=== PATIENT | female | born 1940 | race Caucasian/White ===

== ENCOUNTER → 2018-10-14 12:36 | Outpatient (CLI) | payer MEDICARE, BC, SELFPAY ==
--- NOTE | 2018-10-14 12:56 | CT_ITS ---
CT head/brain wo con HISTORY: Headache, nausea, left-sided head injury with swelling, syncope ITS.REASON: INJURY OF HEAS,NAUSEA,SYNCOPE ORDERING PHYSICIAN: Mary Bond APRN PATIENT AGE: 78 years COMPARISON: None TECHNIQUE: Axial images were obtained. Brain and bone windows reviewed. All CT scans at the facility use one or more dose reduction, viz: automated exposure control, ma/kV adjustment per patient size (including targeted exams where dose is matched to indication, i.e. head), or iterative reconstruction technique. FINDINGS: No midline shift or mass effect is evident. Superior to the right petrous bone there is a oval area of increased density which measures 1.8 cm AP and 1.2 cm transverse. This is a proximally 66 Hounsfield units. This is oval in nature and well-circumscribed. This would be an unusual appearance for subdural or epidural hemorrhage although those entities are considered. This may represent partially calcified meningioma. Does the patient have any old CT or MRI is at another institution? An MRI without and with contrast may be of further value. There are periventricular ischemic gliotic changes with mild generalized atrophy. There is moderate scalp swelling in the left parietal and frontal region consistent with scalp contusion. No calvarial fracture is evident. IMPRESSION: 1. Hyperdense extra-axial lesion along the right petrous ridge laterally which may be related to a meningioma. Atypical extra-axial hemorrhage is not excluded and follow-up is recommended. Suggest MRI of the brain without and with contrast for further evaluation. 2. No midline shift. 3. Left frontal and parietal scalp hematoma
--- NOTE | 2018-10-14 12:56 | CT_ITS ---
CT facial bones wo con INDICATION: Posttraumatic pain and swelling in the left facial region. ITS.REASON: TRAUMATIC CONTUSION, ORDERING PHYSICIAN: Mary Bond APRN PATIENT AGE: 78 years COMPARISON: None TECHNIQUE: Contrast Used: Oral Contrast: Axial images were obtained. Sagittal and coronal reformatted images are reviewed as well. All CT scans at the facility use one or more dose reduction, viz: automated exposure control, ma/kV adjustment per patient size (including targeted exams where dose is matched to indication, i.e. head), or iterative reconstruction technique. FINDINGS: No fracture apparent. No sinus air-fluid level. There is moderate soft tissue swelling in the left frontal and parietal region extending into the left temporal area. Incidental note is made of a hyperdensity along the superior aspect of the right petrous bone at 1.9 x 1.3 cm and may represent a meningioma versus an unusual extra-axial hemorrhage. Consider MRI for further evaluation. No other significant anomalies are evident. IMPRESSION: 1. No acute fracture. 2. Left frontal/parietal and temporal scalp hematoma. 3. 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 Consider MRI for further evaluation
--- NOTE | 2018-10-14 13:16 | XR_ITS ---
XR elbow LT min 3V HISTORY: Posttraumatic pain ITS.REASON: INJURY OF LT ELBOW ORDERING PHYSICIAN: Mary Bond APRN PATIENT AGE: 78 years COMPARISON: None FINDINGS: No acute fracture or dislocation. There are osteoarthritic changes at the lateral joint with bony hypertrophy of the coracoid. No displaced fat pad. IMPRESSION: No acute fracture, degenerative change.
--- NOTE | 2018-10-14 13:16 | XR_ITS ---
XR shoulder LT min 2V HISTORY: Posttraumatic pain ITS.REASON: INJURY OF LT SHOULDER ORDERING PHYSICIAN: Mary Bond APRN PATIENT AGE: 78 years Comparison: None FINDINGS: No acute fracture or dislocation. Severe osteoarthritic changes are present at the glenohumeral joint prominent at spurring along the inferior aspect of the humeral head last neck. IMPRESSION: No acute finding. 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
--- NOTE | 2018-10-14 13:16 | XR_ITS ---
XR wrist LT w scaphoid HISTORY posttraumatic pain ITS.REASON: INJURY OF LT WRIST ORDERING PHYSICIAN: Mary Bond APRN PATIENT AGE: 78 years Comparison: None FINDINGS There is normal alignment. There is a vague longitudinal lucency at the distal and central aspect of the radius suggesting a nondisplaced fracture. This is questionable. The scaphoid has an unremarkable appearance. IMPRESSION: There is a question of a nondisplaced distal radial fracture extending into the articular surface versus overlying prominent trabeculation. Suggest follow-up exam in 7-10 days
[2018-10-14 14:03] LABS: Basophils % 0.2 % (0.1-2.0); Eosinophils # 0.1 K/mm3 (0.0-0.4); Eosinophils % 0.8 % (0.1-12.0); Hematocrit 36.2 % (37.0-47.0); Hemoglobin 11.5 g/dL (12.2-16.2); Lymphocytes # 0.7 K/mm3 (0.7-4.5); Lymphocytes % 8.5 % (10-50); Mean Corpuscular HGB Conc 31.7 g/dL (31.8-35.4); Mean Corpuscular Hemoglobin 29.3 pg (27.0-31.2); Mean Corpuscular Volume 92.5 fl (81-99); Mean Platelet Volume 8.7 fl (7.4-10.4); Monocytes # 0.3 K/mm3 (0.1-1.0); Monocytes % 3.7 % (1.7-9.3); Neutrophils # 7.4 K/mm3 (1.8-7.8); Neutrophils % 86.8 % (37.0-80.0); Platelet Count 197 K/mm3 (142-424); Red Blood Count 3.91 M/mm3 (4.20-5.40); Red Cell Distribution Width 12.6 % (11.5-17.5); White Blood Count 8.5 K/mm3 (4.8-10.8)
[2018-10-14 14:10] LABS: MANUAL DIFFERENTIAL MANUAL DIFFERENTIAL (MANUAL DIFF)
[2018-10-14 16:01] LABS: Troponin I 0.08 ng/ml (0.00-0.06)
[2018-10-14 16:05] LABS: Alanine Aminotransferase 30 U/L (12-78); Anion Gap 13.6 mEq/L (5-15); Aspartate Amino Transferase 31 U/L (15-37); Bilirubin,Total 0.8 mg/dL (0.2-1.0); Blood Urea Nitrogen 18 mg/dL (7-18); Calcium 9.2 mg/dL (8.5-10.1); Carbon Dioxide 28 mmol/L (21.0-32.0); Chloride 101 mmol/L (98-107); Estimated Glomerular Filt Rate 53 ml/min (>60); GFR (African American) 65 ML/MIN (>60); Glucose 159 mg/dL (74-106); Magnesium 1.8 mg/dL (1.4-2.2); Potassium 3.6 mmoL/L (3.5-5.1); Sodium 139 mmol/L (136-145); Total Protein,Serum 7.6 gm/dL (6.4-8.2)
[2018-10-14 16:06] LABS: Albumin Level 3.7 gm/dL (3.4-5.0); Albumin/Globulin Ratio 0.9 (1.1-1.8); Alkaline Phosphatase 81 U/L (46-116); Globulin 3.9 gm/dl (1.3-3.2); Thyroid Stimulating Hormone 0.81 uIU/ml (0.358-3.740)
--- NOTE | 2018-10-14 16:21 | MR_ITS ---
MR head/brain wo/w con HISTORY: Headache, pain following injury, abnormal CT scan showing possible right-sided intracranial hemorrhage versus meningioma at the petrous ridge. ITS.REASON: INJURY OF HEAD, ABNORMAL CT SCAN ORDERING PHYSICIAN: Mary Bond APRN PATIENT AGE: 78 years Comparison: 10/15/2018 TECHNIQUE: Standard multiplanar multiecho sequences are performed without and with gadolinium enhancement . FINDINGS: No midline shift is evident. CT scan demonstrated an area of increased density along the superior aspect of the right petrous bone. This shows heterogeneous slight increase in FLAIR and T2 signal with isointensity on T1. This does not demonstrate contrast enhancement and shows low signal intensity on the hematoma/images consistent with a small extra-axial hemorrhage probably hyperacute. There is an associated small subdural hematoma in the right temporal region measuring 5 mm in width. No enhancing lesions are evident. Prominent soft tissue swelling is present in the left periorbital and supraorbital region as well as the left parietal area. There is diffuse periventricular and subcortical T2 white matter hyperintensities consistent with ischemic gliotic change from microvascular disease. No sinus air-fluid level. No midline shift. There is a small amount of edema around the hematoma. This area measures 1.8 cm AP and 1 cm cephalad to caudad. IMPRESSION: 1. The hyperdense abnormality noted along the superior aspect of the petrous bone on the right is felt to represent small hyperacute acute extra-axial hemorrhage. This does not enhance as one would expect for meningioma and also shows mild edema. 2. There is an associated small subdural hematoma in the right temporal lobe probably 5 mm in thickness. 3. No midline shift or other significant anomalies. Referring physicians office was unable to be contacted through the hospital builder operator. The patient is instructed to go to the emergency room and check in. I spoke with Dr. Lopez and told him about the patient. The radiologist staff escorted the patient to the emergency room.
[2018-10-14 17:45] LABS: Lymphocytes % 7 % (10-50); Monocytes % 1 % (2-9); Neutrophils % 88 % (42-76); Total Cells Counted 100
[2018-10-14 17:46] LABS: Hypochromasia 1+; Platelet Estimate Normal
== END ==
PROVIDERS: PCP Nurse Practitioner Family; Visit Provider Nurse Practitioner Family
DX: R55 Syncope and collapse (principal); Z79.899 Other long term (current) drug therapy
CPT/HCPCS: 36415; 70450; 70486; 70553; 73030; 73080; 73110; 80053; 83735; 84443; 84484; 85007; 85025; A9576

== ENCOUNTER 2022-03-24 06:55 | Emergency (ER) | payer MEDICARE, BC, SELFPAY ==
[2022-03-24] VITALS (9 sets, daily range): BP systolic 146–179; BP diastolic 74–100; PULSE 59–76; RESP 18; TEMP 37.5; O2SAT 94–97; BMI 21.6; BMI 20.2
[2022-03-24 07:19] LABS: Influenza A, PCR Not Detected (NotDetected); Influenza B, PCR Not Detected (NotDetected); Microscopic, Urine URINE MICROSCOPIC (MICROSCOPIC)
[2022-03-24 07:21] LABS: Appearance,Urine CLEAR (Clear); Bilirubin,Urine Negative (Negative); Blood, Urine 2+ (Negative); Color,Urine YELLOW (Yellow); Glucose,Urine (UA) Negative (Negative); Ketones,Urine TRACE (Negative); Leukocyte Esterase,Urine Negative (Negative); Nitrate,Urine Negative (Negative); PH,Urine 6.5 (5.0-8.5); Protein,Urine 2+ (Negative); Urobilinogen,Urine 0.2 EU/dl (0.2)
[2022-03-24 07:21] LABS: Basophils % 0.6 % (0.1-2.0); Eosinophils # 0.1 K/mm3 (0.0-0.4); Eosinophils % 0.8 % (0.1-12.0); Hematocrit 34.9 % (37.0-47.0); Hemoglobin 11.8 g/dL (12.2-16.2); Lymphocytes # 1.1 K/mm3 (0.7-4.5); Lymphocytes % 16.9 % (10-50); Mean Corpuscular HGB Conc 33.7 g/dL (31.8-35.4); Mean Corpuscular Hemoglobin 30.9 pg (27.0-31.2); Mean Corpuscular Volume 91.6 fl (81-99); Monocytes # 0.6 K/mm3 (0.1-1.0); Monocytes % 9.8 % (1.7-9.3); Neutrophils # 4.7 K/mm3 (1.8-7.8); Neutrophils % 71.9 % (37.0-80.0); Platelet Count 213 K/mm3 (142-424); Red Blood Count 3.81 M/mm3 (4.20-5.40); Red Cell Distribution Width 13.1 % (11.5-17.5); White Blood Count 6.5 K/mm3 (4.8-10.8)
[2022-03-24 07:25] LABS: Chloride 102 mmol/L (98-107); Potassium 3.7 mmoL/L (3.5-5.1); Sodium 139 mmol/L (136-145)
[2022-03-24 07:28] LABS: Alanine Aminotransferase 23 U/L (12-78); Albumin Level 4.5 g/dl (3.5-5.0); Albumin/Globulin Ratio 1.4 (1.1-1.8); Alkaline Phosphatase 93 U/L (38-126); Anion Gap 12.7 mEq/L (5-15); Aspartate Amino Transferase 35 U/L (14-36); Bilirubin,Total 0.4 mg/dl (0.2-1.3); Blood Urea Nitrogen 16 mg/dl (7-17); Carbon Dioxide 28 mmol/L (22.0-30.0); Creatinine Clearance Estimated 38 mL/min (50-200); Estimated Glomerular Filt Rate 43 ml/min (>60); GFR (African American) 52 ML/MIN (>60); Globulin 3.3 g/dL (1.3-3.2); Total Protein,Serum 7.8 g/dl (6.3-8.2)
[2022-03-24 07:29] LABS: Calcium 9.6 mg/dl (8.4-10.2); Glucose 135 mg/dl (74-100)
[2022-03-24 07:34] LABS: Bacteria,Urine 1+ /lpf; Mucus,Urine Trace /lpf
[2022-03-24 07:42] LABS: Coronavirus 19, PCR Detected (NotDetected)
--- NOTE | 2022-03-24 07:47 | CT_ITS ---
FINAL REPORT TECHNIQUE: Axial CT images were performed from the lung bases through the pubic symphysis. Coronal reformats were submitted and reviewed. This study was performed with techniques to keep radiation doses as low as reasonably achievable (ALARA). Individualized dose reduction techniques using automated exposure control or adjustment of mA and/or kV according to the patient's size were employed. CLINICAL HISTORY: pain FINDINGS: Abdomen: There is mild bibasilar atelectasis or scarring. There is a large gallstone in the gallbladder. The liver, spleen and pancreas are unremarkable. There are no adrenal masses. There is a 6 mm nonobstructing stone in the left kidney. There is no hydronephrosis. The kidneys have a lobular contour which is favored represent a normal variation. There are several right renal masses that cannot be accurately characterized without contrast. There is an 8 mm high attenuation mass in the lower pole the right kidney that could represent a hyperdense cyst. There is a moderate to large amount of retained stool. Pelvis: The appendix is not well seen. There are no distal ureteral stones. The urinary bladder is unremarkable. IMPRESSION: Large gallstone. Nonobstructing left renal stone. Several right renal masses including a questionable 8 mm hyperdense lower pole mass. This could be further evaluated with renal mass protocol CT. Moderate to large amount of retained stool. Reviewed, Interpreted and Dictated by Kieran Suazo III, MD Transcribed by Everton Cuevas Authenticated and [facility]
--- NOTE | 2022-03-24 07:55 | PC.NURSE ---
radiology aware of ct scan for pt
--- NOTE | 2022-03-24 08:00 | PC.NURSE ---
Checked on patient, she reports no needs at this time. She is sitting up on ED stretcher with spouse at BS. Call light within reach, aware that MD will be in shortly
--- NOTE | 2022-03-24 08:07 | PC.NURSE ---
PARDEEP ZHONG at
--- NOTE | 2022-03-24 08:10 | XR_ITS ---
FINAL REPORT CLINICAL HISTORY: COVID, productive cough COMPARISON: October 2018 FINDINGS: SINGLE VIEW CHEST The heart size is enlarged. The mediastinum is within normal limits. No acute pulmonary abnormality is identified. There is no evidence of pneumothorax. There are degenerative changes in the left shoulder. IMPRESSION: No acute cardiopulmonary process. Reviewed, Interpreted and Dictated by Kieran Suazo III, MD Transcribed by Everton Cuevas Authenticated and [facility]
--- NOTE | 2022-03-24 08:10 | HMH.EDGENADL ---
Discharge Plan Disposition Patient Disposition: Home, Self-Care Condition: Good Chief Complaint: Weakness Prescriptions Prescriptions: No Action lisinopril 40 MG tablet 40 mg PO DAILY Referrals Follow up/Referrals: Mary Bond APRN [Primary Care Provider] - See instructions Activity Restrictions/Add. Instructions Additional Instructions/Restrictions: Make sure to stay hydrated, eat and drink to make sure you do not become dehydrated and have kidney issues. Tylenol and Motrin every 6 hours as needed for body aches and fever, make sure to take these with food and water to prevent stomach upset and kidney issues as well. If you have any other concerning signs or symptoms, return to the ED for further evaluation or your primary care provider. Quarantine from day of start symptoms (day 0) until day 5. Follow-up with your primary care provider regarding imaging results, including right renal masses and gallstone. Clinical Impressions Clinical Impression: Dehydration, mild, COVID-19 Discharge ED Provider: Zaki Corley General Adult HPI General Chief complaint: Weakness Stated complaint: freezing,difficulty focusing,weakness Time Seen by Provider: 03/24/22 08:00 Mode of Arrival: Ambulatory Source of Information: Patient Limitations: No Limitations Description of Symptoms (Recalled from ER Triage Doc. by RN): c/o having a freezing spell last night. States she got up about 10 times to urinate last night, feeling weak and when she got up this morning she couldnt walk straight. History of Present Illness HPI narrative: This is an 81-year-old female with history of hypertension who is presenting with fevers, chills, productive cough, sore throat. Patient states that the symptoms started 1 day prior to arrival with chills. She has felt febrile, but has not taken any objective temperature measurement. She has had associated rhinorrhea, cough which is worse when she lays down. Cough is productive of white sputum. She denies chest pain, shortness of breath, nausea, vomiting, diarrhea, abdominal pain, dysuria, hematuria, confusion, neck pain, difficulty with range of motion of neck, difficulty swallowing, or any other concerning history. Related Data Home Medications Medication Instructions Recorded Confirmed lisinopril 40 mg tablet 40 mg PO DAILY High blood pressure 10/14/18 10/14/18 Allergies Allergy/AdvReac Type Severity Reaction Status Date / Time No Known Allergies Allergy Verified 10/14/18 18:20 [facility] Disclaimer: The information contained in this section may have been updated after the patient was seen, as this information can be updated by other users. Social History Smoking Status: Never smoker alcohol intake: never current occupational status: retired Travel in the last 8 weeks: None ROS Obtained: Yes All systems reviewed & no additional complaints except as documented Physical Exam General General appearance: alert, in no apparent distress and anxious Head Head exam: atraumatic, normocephalic and normal inspection Eye Eye exam: Present normal appearance, PERRL and EOMI ENT ENT exam: Present normal exam, normal oropharynx, mucous membranes moist, TM's normal bilaterally and normal external ear exam Neck Neck exam: Present normal inspection, full ROM and trachea midline; Absent tenderness, meningismus or lymphadenopathy Chest Chest inspection: Present normal inspection and symmetric chest wall rise; Absent tenderness Respiratory Respiratory exam: Present normal lung sounds bilaterally; Absent respiratory distress Cardiovascular Cardiovascular exam: Present regular rate and normal rhythm; Absent JVD Abdominal Exam Abdominal exam: Present soft and normal bowel sounds; Absent distention, tenderness, guarding, rebound or rigidity Extremities Exam Extremities exam: Present normal inspection, full ROM and normal capillary refill; Absent edema or calf tenderness Back Exam Back ex
--- NOTE | 2022-03-24 08:34 | PC.NURSE ---
pt returned from scan
== END 2022-03-24 10:31 | disposition home or self-care (01) ==
PROVIDERS: Emergency Medicine; Emergency Provider Emergency Medicine; PCP Nurse Practitioner Family
DX: U07.1 COVID-19 (principal); J02.9 Acute pharyngitis, unspecified; R50.9 Fever, unspecified; R53.1 Weakness; N20.0 Calculus of kidney; M79.10 Myalgia, unspecified site; R31.29 Other microscopic hematuria; R05.9 Cough, unspecified; I10 Essential (primary) hypertension; N28.89 Other specified disorders of kidney and ureter
CPT/HCPCS: 71045; 74176; 80053; 81001; 85025; 96360; 99285; C9803; U0003; U0005

== ENCOUNTER → 2023-02-25 10:11 | Outpatient (CLI) | payer MEDICARE, BC, SELFPAY ==
[2023-02-25 10:56] LABS: Basophils % 0.5 % (0.1-2.0); Eosinophils % 0.8 % (0.1-12.0); Hematocrit 36.4 % (37.0-47.0); Hemoglobin 11.7 g/dL (12.2-16.2); Lymphocytes % 19.8 % (10-50); Mean Corpuscular HGB Conc 32.1 g/dL (31.8-35.4); Mean Corpuscular Hemoglobin 30.9 pg (27.0-31.2); Mean Corpuscular Volume 96.4 fl (81-99); Mean Platelet Volume 8.8 fl (7.4-10.4); Monocytes # 0.3 K/mm3 (0.1-1.0); Monocytes % 5.7 % (1.7-9.3); Neutrophils # 3.6 K/mm3 (1.8-7.8); Neutrophils % 73.1 % (37.0-80.0); Platelet Count 187 K/mm3 (142-424); Red Blood Count 3.78 M/mm3 (4.20-5.40); Red Cell Distribution Width 13.6 % (11.5-17.5); White Blood Count 4.9 K/mm3 (4.8-10.8)
[2023-02-25 11:23] LABS: Alanine Aminotransferase 27 U/L (12-78); Albumin Level 4.3 g/dl (3.5-5.0); Alkaline Phosphatase 96 U/L (38-126); Anion Gap 10.9 mEq/L (5-15); Aspartate Amino Transferase 40 U/L (14-36); Bilirubin,Direct 0.2 mg/dl (0.0-0.4); Bilirubin,Indirect 0.5 mg/dL (0.0-0.9); Bilirubin,Total 0.7 mg/dl (0.2-1.3); Bilirubin,Unconjugated 0.5 mg/dL (0.0-1.1); Blood Urea Nitrogen 22 mg/dl (7-17); Calcium 8.9 mg/dl (8.4-10.2); Carbon Dioxide 28 mmol/L (22.0-30.0); Chloride 103 mmol/L (98-107); Chol/HDL Ratio 2.6 (1-3.5); Cholesterol 267 mg/dl (140-200); Estimated Glomerular Filt Rate 47 ml/min (>60); GFR (African American) 57 ML/MIN (>60); Glucose 113 mg/dl (74-100); HDL Cholesterol 102 mg/dl (40-60); Potassium 3.9 mmoL/L (3.5-5.1); Sodium 138 mmol/L (136-145); Total Protein,Serum 7.6 g/dl (6.3-8.2); Triglycerides 83 mg/dl (30-150); VLDL Cholesterol 17 mg/dL (0-40)
[2023-02-25 11:35] LABS: Direct LDL Cholesterol 124.23 mg/dL (100-129)
[2023-02-25 11:39] LABS: Free T4 (Free Thyroxine) 1.43 ng/dl (0.78-2.19)
[2023-02-25 11:53] LABS: Thyroid Stimulating Hormone 1.49 uIU/mL (0.465-4.68)
== END ==
PROVIDERS: PCP Nurse Practitioner Family; Visit Provider Nurse Practitioner
DX: I10 Essential (primary) hypertension (principal); I49.9 Cardiac arrhythmia, unspecified; R94.31 Abnormal electrocardiogram [ECG] [EKG]
CPT/HCPCS: 36415; 80048; 80061; 80076; 83735; 84439; 84443; 85025

== ENCOUNTER → 2023-03-02 09:34 | Outpatient (CLI) | payer MEDICARE, BC, SELFPAY ==
--- NOTE | 2023-03-02 09:47 | CT_ITS ---
FINAL REPORT CLINICAL HISTORY: blurry vision, headache FINDINGS: CTA HEAD TECHNIQUE: Thin section axial CT with contrast with 3D MIP reconstruction FINDINGS: No aneurysm is seen. There is mild stenosis of the proximal diamond setter apprentice. IMPRESSION: Mild stenosis of the proximal diamond setter apprentice. CT NECK ANGIO, WITHOUT AND WITH CONTRAST TECHNIQUE: Thin section axial CT with IV contrast supplemented with 3D MIP reconstruction NASCET criteria and technique was utilized during interpretation. FINDINGS: Aortic arch: Arch shows no significant narrowing. Great vessel origins are widely patent. Right carotid: No significant stenosis is seen of the cervical common or internal carotid artery. Left carotid: No significant stenosis is seen of the cervical common or internal carotid artery. Vertebrals: The vertebral arteries are codominant. No significant stenosis is present. IMPRESSION: No significant stenosis of the cervical carotid arteries This study was performed using automated techniques to achieve radiation exposure as low as reasonably Reviewed, Interpreted and Dictated by Marquis Lea MD Transcribed by Ruthann Salas Authenticated and . [facility]
--- NOTE | 2023-03-02 09:47 | CT_ITS ---
FINAL REPORT TECHNIQUE: Axial images through the head was performed by computed tomography. Sagittal and coronal reformatted images were obtained and reviewed. This study was performed with techniques to keep radiation doses as low as reasonably achievable (ALARA). Individualized dose reduction techniques using automated exposure control or adjustment of mA and/or kV according to the patient's size were employed. CLINICAL HISTORY: headache, blurry vision. r/o stroke COMPARISON: 10/14/2018 FINDINGS: Mild atrophy and chronic ischemic white matter changes are noted. No cortical edema is present. There is no mass or hemorrhage. Ventricles are normal. Bone windows show no skull fracture or obvious obstructive lesion. IMPRESSION: 1. No acute intracranial abnormality or obvious mass. 2. Atrophy and chronic ischemic white matter changes as above. Reviewed, Interpreted and Dictated by Marquis Lea MD Transcribed by Ruthann Salas Authenticated and . [facility]
== END ==
PROVIDERS: PCP Nurse Practitioner Family; Visit Provider Nurse Practitioner
DX: R51.9 Headache, unspecified (principal); I10 Essential (primary) hypertension; H53.8 Other visual disturbances; R94.31 Abnormal electrocardiogram [ECG] [EKG]
CPT/HCPCS: 70496; 70498; Q9967

== ENCOUNTER → 2023-03-04 08:35 | Outpatient (CLI) | payer MEDICARE, BC, SELFPAY ==
--- NOTE | 2023-03-04 08:38 | CA_ITS ---
FINAL REPORT CLINICAL HISTORY: HTN emergency FINDINGS: Aorta velocity: 109 cm/sec Right kidney: 10.3 cm. There is no evidence of hydronephrosis. Multiple cysts are noted. Right intrarenal RI: 0.75 Right renal artery velocity: 132 cm/sec. Right RAR (Renal artery-Aortic Ratio): 1.2 Left Kidney: 9.9 cm. No evidence of hydronephrosis or mass. Left intrarenal RI: 0.85 Left renal artery velocity: 184 cm/sec. Left RAR (Renal Artery-Aortic Ratio): 1.7 IMPRESSION: No evidence of renal artery stenosis on the right. Less than 60% renal artery stenosis on the left. CT angiogram or postcontrast MR angiogram would be more sensitive for evaluation of possible renal artery stenosis. Reviewed, Interpreted and Dictated by Ricky Bang MD Transcribed by Ruthann Salas Authenticated and [facility]
--- NOTE | 2023-03-04 09:13 | US_ITS ---
FINAL REPORT CLINICAL HISTORY: I10 - Essential (primary) hypertension FINDINGS: The right kidney measures 11.3 cm in length. It is normal in echogenicity. There is no hydronephrosis. There are benign-appearing cysts in the right kidney measuring 2.5 and 1.6 cm each. The left kidney measures 10.3 cm in length. It is normal in echogenicity. There is no hydronephrosis. The spleen is unremarkable. IMPRESSION: Right renal cysts. Reviewed, Interpreted and Dictated by Ricky Bang MD Transcribed by Ruthann Salas Authenticated and [facility]
== END ==
PROVIDERS: PCP Nurse Practitioner Family; Visit Provider Nurse Practitioner
DX: I10 Essential (primary) hypertension (principal)
CPT/HCPCS: 76770; 93976

== ENCOUNTER → 2023-03-26 06:33 | Outpatient (CLI) | payer MEDICARE, BC, SELFPAY ==
--- NOTE | 2023-03-26 06:34 | CA_ITS ---
APPROVED REPORT EXAM: Comprehensive 2D, Doppler, and color-flow Echocardiogram Mobility Architect Manager: PRABHA Andrew, RVS Ht: 5 ft 10 in Wt: 152lbs BSA: 1.86 BP: 162/73 mmHg Indications: Abn EKG, Cardiac arrythmia, SOA, Murmur, HTN 2D Dimensions Left Atrium 3.78 cm F: 2.7 - 3.8 LA Volume 65.00 mL LA Volume Index 34.95 mL/m2 (M/F) 16-34 M-Mode Dimensions RVDd 2.24 cm (0.9-2.6) LA Diam 4.57 cm (1.9-4.0) LVDd 5.89 cm (3.5-5.7) LVDs 4.22 cm (3.5-5.7) IVSd 1.04 cm (0.6-1.1) PWd 0.84 cm (0.6-1.1) EF (Teich) 53.90% EPSs 0.44 cm FS 28.40% EDV (Teich) 172.50 mL TAPSE 2.48 (<1.7) ESV (Teich) 79.50 mL LV Diastology E Decel Time 327 (160-240 msec) E/A Ratio 0.90 MED A' 7.20 cm/s LAT A' 10.20 cm/s Aortic Valve ADE Index 1.05 cm2/m2 AoV Peak [place]. 178.0 (50-130 cm/s) AI PHT 781.00 ms AO Peak GR. 12.60 mmHg AO Mean GR. 6.30 (<5 mmHg) AO VTI 45.4 (18-25 cm) ADE (VTI) 2.00 (2.5-4.5 cm2) Mitral Valve MV A Velocity 80.0 (40-130 cm/s) E/A Ratio 0.90 MV Mean Gr. 1.00 (<2mmHg) Pulmonary Valve MI End VMAX 154.0 cm/s Tricuspid Valve TR P. Velocity 276.00 cm/s RAP Estimate 10.00 mmHg RVSP 40.50 mmHg Left Ventricle The left ventricle is normal size. The left ventricular systolic function is normal. The left ventricular ejection fraction is within the normal range. There is increased LV wall thickness. Proximal septal thickening is noted. There is normal LV segmental wall motion. Diastolic function is indeterminate. LVEF is 55%. Right Ventricle The right ventricle is mildly dilated. The right ventricular systolic function is normal. Atria Left atrium is moderately dilated. Right atrium is moderately dilated. Aortic Valve The aortic valve opens well. There is no aortic valvular stenosis. Mild aortic regurgitation. Mitral Valve The mitral valve is normal in structure. No evidence of mitral valve stenosis. Mild mitral regurgitation. Tricuspid Valve The tricuspid valve leaflets are thin and pliable. Mild tricuspid regurgitation. RVSP is 30-35 mmHg. Pulmonic Valve The pulmonary valve is normal in structure. Mild pulmonic regurgitation. Great Vessels The aortic root is normal in size. The ascending aorta is normal in size. IVC is normal in size and collapses >50% with inspiration. Pericardium There is no pericardial effusion. Other Information Study Quality: Fair Conclusion Normal biventricular systolic function. Mild RV dilation. Moderate biatrial dilation. Mild AI, mild MR, mild TR, mild MI. RVSP 30-35 mmHg. Electronically signed by : Nallely Gregory MD 03/30/2023 21:25:58
--- NOTE | 2023-03-26 06:37 | NM_ITS ---
APPROVED REPORT Exam: Nuclear Stress Test Indication: DYSRHYTHMIA, HTN, HYPERL;IPIDEMIA, ABN EKG Patient Location: Outpatient Stress Tech: Kathy Bonilla DC Tech:DUTCH Arguelles RT (R)(N)(M) Ht: 5 ft 10 in Wt: 152 lbs Bra Size: B HR: 44 bpm BP: 166/64 mmHg BSA: 1.86 m2 TID: 0.96 BMI: 21.8 History: DYSRHYTHMIA, HTN, HYPERL;IPIDEMIA, ABN EKG PT COULD NOT RAISE LT ARM DUE TO SHOULDER INJURY OR LAY ON STOMACH FOR PRONE IMAGES Procedure: Patient received 0.4 mg of intravenous Lexiscan, resting heart rate 44 bpm, resting blood pressure 166/64 mmHg, with Lexiscan maximum heart rate achieved was 71 bpm which is % of the maximum predicted heart rate and blood pressure was 152/59 mmHg. With Lexiscan, patient denied any complaint of chest pain. Cardiac Stress and Resting SPECT Images: Cardiac Stress and Resting SPECT images were obtained using technetium 99m Myoview 29.8 mCi stress and 10.52 mCi at rest. The patient could not lie on her abdomen. Therefore, prone stress imaging could not be performed. This may affect the diagnostic interpretation of the study findings. Resting and stress imaging in supine position demonstrate a medium sized, moderate, reversible perfusion defect in the basal to mid inferior and inferolateral LV garcia. Gated imaging demonstrates normal global LV systolic function. There is mild hypokinesis of the basal inferior LV wall LVEF is calculated at 62%. Conclusion: Medium sized, moderate, reversible perfusion defect in the basal to mid inferior and inferolateral LV gacria. Findings are suggestive of reversible ischemia. Gated imaging demonstrates normal global LV systolic function. There is mild hypokinesis of the basal inferior LV wall LVEF is calculated at 62%. Electronically signed by : Nallely Gregory MD 03/30/2023 21:31:55
--- NOTE | 2023-03-26 14:25 | CA_ITS ---
APPROVED REPORT Exam: Pharmacologic Technologist: Gloria Harvey, Ht: 5 ft 10 in Wt: 152 lbs BSA: 1.86 m2 HR: 44 bpm BP: 166/64 mmHg Rhythm: NSR Medical History Medications: Procardia XL,,,,, Metoprolol Succinate ER,,,,, DiOVAN HCT,,,,, Stress Test Details Test: LEXISCAN Reason for pharmacologic stress test: physical limitation. HR Resting HR: 43 bpm Max Heart Rate (APMHR): 137 bpm Max HR Achieved: 83 bpm Target HR (85% APMHR): 116 bpm % of APMHR: 61 Recovery HR: 47 bpm BP Resting BP: 166.0/64.0 mmHg Max BP: 166.0/64.0 mmHg Recovery BP: 136.0/62.0 mmHg ECG Resting ECG: marked sinus bradycardia, rightward axis, ST-T abns inferiorly & laterally. Transient ectopic atrial rhythm with short MO interval PVCs, PACs. Stress ECG: No significant ST changes Arrhythmia: PACs, PVCs, brief atrial run Clinical Exercise duration: 04:01 min Highest Stage Achieved: Stress ECG Conclusion Manual BP 240/90. Clonidine 0.1mg PO given at 8:55am. At 9:45 BP was 166/64. Symptoms: Mild SOA, head discomfort. No CP. Arrhythmias/Ectopy: Frequent PACs, Occ PVC, brief atrial run ST-T Changes: No significant ST changes Conclusion: Non-diagnostic Lexiscan stress due to baseline ECG abnormalities. Myoview images reported separately. Test Summary REST 00:28 . . 43 . 166/ 64 . . Stage 1 01:00 . . 51 . . . . Stage 2 01:00 . . 75 . . . . Stage 3 01:00 . . 69 . 152/ 59 . . Stage 4 01:00 . . 71 . 130/ 61 . . Stage 4 01:01 . . 65 . 130/ 61 . Stop exercise at 04:01 RECOVERY 01:00 . . 66 . 127/ 60 . . RECOVERY 02:00 . . 54 . 128/ 62 . . RECOVERY 03:00 . . 64 . 133/ 61 . . RECOVERY 04:00 . . 63 . 133/ 61 . . RECOVERY 05:00 . . 52 . 133/ 61 . . RECOVERY 05:19 . . 47 . 136/ 62 . . Electronically signed by : Nallely Gregory MD 03/30/2023 21:29:14
== END ==
PROVIDERS: PCP Nurse Practitioner Family; Visit Provider Nurse Practitioner Family
DX: I10 Essential (primary) hypertension (principal); I49.9 Cardiac arrhythmia, unspecified; R94.31 Abnormal electrocardiogram [ECG] [EKG]
CPT/HCPCS: 78452; 93017; 93018; 93306; A9502; J2785

== ENCOUNTER 2023-05-04 08:36 | Day surgery (SDC) | payer MEDICARE, BC, SELFPAY ==
[2023-05-04] VITALS (14 sets, daily range): BP systolic 141–219; BP diastolic 64–114; PULSE 55–78; RESP 17–19; TEMP 36.1; O2SAT 98–100; BMI 21.8
--- NOTE | 2023-05-04 07:03 | IR_ITS ---
APPROVED REPORT Patient Location: Outpatient PROCEDURES Left heart catheterization Left ventriculogram Selective coronary angiogram Bilateral selective renal angiogram INDICATION Abnormal Myoview, Angina pectoris, Malignant hypertension Informed consent was obtained prior to the procedure. COMPLICATIONS NONE Estimated Blood Loss: LESS THAN 10 ML TECHNIQUE One percent lidocaine was used to anesthetize the right groin. The right femoral artery was accessed via the Seldinger technique. A 4-[place] sheath was placed in the right femoral artery. The JL-4 and JR-4 catheter was also used to perform left heart catheterization left ventriculogram and selective coronary angiogram. The JR4 catheter was used to perform bilateral selective renal angiography. At the end the procedure the apparatus was removed the groin is reprepped closure change sheath was removed and hemostasis was achieved using Perclose device patient was transferred to the postop holding in stable condition ANGIOGRAPHIC RESULTS The left main artery Normal The left anterior descending artery Normal The circumflex artery Normal The right coronary artery Dominant normal The MERCHANT ventriculogram reveals Hyperdynamic 70 to 75% The left ventricular end-diastolic pressure Less than 10 mmHg Right renal artery singular normal Left renal artery singular normal IMPRESSION Normal coronary arteries Hyperdynamic ventricle Normal LVEDP Normal renal arteries PLAN 1. Hydrochlorothiazide 25 mg p.o. daily will be added to the current regimen as well as amlodipine 10 mg daily. Patient had blood pressures of 239 mmHg systolic. Tight follow-up and blood pressure control is warranted Electronically signed by : Gregory Zelaya MD 05/04/2023 12:21:35
[2023-05-04 09:27] LABS: Basophils % 0.5 % (0.1-2.0); Eosinophils % 0.6 % (0.1-12.0); Hematocrit 35.4 % (37.0-47.0); Hemoglobin 11.9 g/dL (12.2-16.2); Lymphocytes # 1.9 K/mm3 (0.7-4.5); Lymphocytes % 32.2 % (10-50); Mean Corpuscular HGB Conc 33.6 g/dL (31.8-35.4); Mean Corpuscular Hemoglobin 31.8 pg (27.0-31.2); Mean Corpuscular Volume 94.4 fl (81-99); Mean Platelet Volume 9.2 fl (7.4-10.4); Monocytes # 0.4 K/mm3 (0.1-1.0); Monocytes % 6.7 % (1.7-9.3); Neutrophils # 3.6 K/mm3 (1.8-7.8); Platelet Count 184 K/mm3 (142-424); Red Blood Count 3.75 M/mm3 (4.20-5.40); Red Cell Distribution Width 13.6 % (11.5-17.5); White Blood Count 6.1 K/mm3 (4.8-10.8)
[2023-05-04 09:34] LABS: Anion Gap 13.9 mEq/L (5-15); Blood Urea Nitrogen 20 mg/dl (7-17); Calcium 9.4 mg/dl (8.4-10.2); Carbon Dioxide 30 mmol/L (22.0-30.0); Chloride 105 mmol/L (98-107); Creatinine Clearance Estimated 42 mL/min (50-200); Estimated Glomerular Filt Rate 47 ml/min (>60); GFR (African American) 57 ML/MIN (>60); Glucose 108 mg/dl (74-100); Potassium 3.9 mmoL/L (3.5-5.1); Sodium 145 mmol/L (136-145)
[2023-05-04] MEDS: diphenhydrAMINE 50MG/ML VIAL 50 MG IV (11:53)
[2023-05-04] MEDS: HEPARIN 1,000 UNITS/500ML NS (CATH LAB) 3000 UNIT IV (11:53)
[2023-05-04] MEDS: 0.9 % SODIUM CHLORIDE 500 ML 25 ML IV (11:53)
[2023-05-04] MEDS: MIDAZOLAM HCL 1MG/1ML 5ML VIAL 1 MG IV (11:54)
[2023-05-04] MEDS: FENTANYL 100MCG/2ML VIAL 50 MCG IV (11:54)
[2023-05-04] MEDS: HYDRALAZINE 20MG/ML VIAL 20 MG IV (12:08)
[2023-05-04] MEDS: IOPAMIDOL-370 (76%);100ML BOTTLE 60 ML IV (13:00)
== END 2023-05-04 15:23 | disposition home or self-care (01) ==
PROVIDERS: PCP Nurse Practitioner Family; Visit Provider Internal Medicine
DX: I10 Essential (primary) hypertension (principal); I70.1 Atherosclerosis of renal artery; R94.39 Abnormal result of other cardiovascular function study; I25.118 Atherosclerotic heart disease of native coronary artery with other forms of angina pectoris; R06.02 Shortness of breath; R94.31 Abnormal electrocardiogram [ECG] [EKG]
CPT/HCPCS: 36252; 80048; 85025; 93458; 99152; C1725; C1760; C1769; J1644; Q9967

== ENCOUNTER 2023-05-11 09:36 | Outpatient (CLI) | payer MEDICARE, BC, SELFPAY ==
[2023-05-11 10:06] LABS: Basophils % 0.9 % (0.1-2.0); Eosinophils % 0.6 % (0.1-12.0); Hematocrit 35.8 % (37.0-47.0); Hemoglobin 11.9 g/dL (12.2-16.2); Lymphocytes # 1.5 K/mm3 (0.7-4.5); Lymphocytes % 30.8 % (10-50); Mean Corpuscular HGB Conc 33.2 g/dL (31.8-35.4); Mean Corpuscular Hemoglobin 31.2 pg (27.0-31.2); Mean Corpuscular Volume 93.8 fl (81-99); Mean Platelet Volume 9.3 fl (7.4-10.4); Monocytes # 0.4 K/mm3 (0.1-1.0); Monocytes % 8.5 % (1.7-9.3); Neutrophils # 2.8 K/mm3 (1.8-7.8); Neutrophils % 59.2 % (37.0-80.0); Platelet Count 199 K/mm3 (142-424); Red Blood Count 3.82 M/mm3 (4.20-5.40); Red Cell Distribution Width 13.4 % (11.5-17.5); White Blood Count 4.7 K/mm3 (4.8-10.8)
[2023-05-11 10:37] LABS: Chloride 95 mmol/L (98-107); Sodium 132 mmol/L (136-145)
[2023-05-11 10:38] LABS: Potassium 3.8 mmoL/L (3.5-5.1)
[2023-05-11 10:41] LABS: Anion Gap 10.8 mEq/L (5-15); Blood Urea Nitrogen 23 mg/dl (7-17); Carbon Dioxide 30 mmol/L (22.0-30.0); Estimated Glomerular Filt Rate 43 ml/min (>60); GFR (African American) 52 ML/MIN (>60); Glucose 129 mg/dl (74-100)
== END 2023-05-11 23:59 ==
LOC: LAB 09:37
PROVIDERS: PCP Nurse Practitioner Family; Visit Provider Physician Assistant
DX: I10 Essential (primary) hypertension (principal); R94.31 Abnormal electrocardiogram [ECG] [EKG]
CPT/HCPCS: 36415; 80048; 85025